=== PATIENT | female | born 1975 | race Hispanic/Latino ===

== ENCOUNTER 2018-02-26 18:54 | Emergency (ER) | payer SELFPAY ==
[2018-02-26 19:15] VITALS: TEMP 99.1
[2018-02-26] MEDS ORDERED: ASPIRIN (CHEWABLE) 81 MG TAB PO ONE (19:25)
--- NOTE | 2018-02-26 19:30 | ED.PDOC ---
History of Present Illness - General Chief Complaint: Chest Pain/OH Stated Complaint: pain across chest and to back Time Seen by Provider: 02/26/18 19:15 Source: patient Exam Limitations: no limitations - History of Present Illness Initial Comments: Patient presents with chest pain for 24 hours. It was constant yesterday, stopped at night, then began again today. It is mid-sternal with no radiation. Feels like "congestion". No associated symptoms. Denies previous episodes. Patient denies tobacco use, htn, DM, or first degree family members with cardiac disease. She has occasional bipedal edema associated with long stents of time on her feet at work. No previous AMI. No other complaints. Timing/Duration: 24 hours Severity/Quality: mild Location: substernal Chest Pain Radiation: no radiation Activities at Onset: none Prior Chest Pain/Cardiac Workup: no prior chest pain Improving Factors: nothing Worsening Factors: nothing Nitro Today/Relief: no nitro taken today Aspirin Treatment Today: no aspirin today Associated Symptoms: denies symptoms Allergies/Adverse Reactions: Allergies NO KNOWN ALLERGY Allergy (Verified 07/16/15 13:58) Home Medications: Ambulatory Orders Lisinopril & Hydrochlorothiazi [Lisinopril/Hctz 20-25 mg] 1 tab PO DAILY Review of Systems - Review of Systems Constitutional: States: no symptoms reported EENTM: States: no symptoms reported Respiratory: States: no symptoms reported Cardiology: States: see HPI Gastrointestinal/Abdominal: States: no symptoms reported Genitourinary: States: no symptoms reported Musculoskeletal: States: no symptoms reported Skin: States: no symptoms reported Neurological: States: no symptoms reported Endocrine: States: no symptoms reported Hematologic/Lymphatic: States: no symptoms reported Past Medical History (General) - Patient Medical History Hx Congestive Heart Failure: No Hx Hypertension: Yes Hx Diabetes: No Surgical History: tonsillectomy - Vaccination History Hx Tetanus, Diphtheria Vaccination: No Hx Influenza Vaccination: No Hx Pneumococcal Vaccination: No - Social History Hx Tobacco Use: No Hx Alcohol Use: No - Female History Hx Last Menstrual Period: 10/31/14 Patient : No - Triage Comment ED Triage Comment: pain across chest for past day Family Medical History - Family History Mother Family History: No Known Physical Exam - Physical Exam General Appearance: Alert Eyes, Ears, Nose, Throat Exam: PERRL/EOMI, normal ENT inspection Neck: non-tender, full range of motion, supple Respiratory: chest non-tender, lungs clear, normal breath sounds Cardiovascular/Chest: normal peripheral pulses, regular rate, rhythm, no edema Gastrointestinal/Abdominal: normal bowel sounds, non tender, soft Extremity: normal range of motion, non-tender, normal inspection Neurologic: director of clinical trials II-XII nml as tested, no motor/sensory deficits, alert Skin Exam: normal color Lymphatic: no adenopathy Progress - Progress Progress: 02/26/18 20:18 EKG shows NSR with no ST changes nor T wave inversions. No LBBB. Troponin 0.17. NSTEMI diagnosed. ASA 325 mg po was given upon arrival. Nitropaste to chest started. Plavix 300 mg po xone. Atorvastatin 80 mg po x one. Heparin 5000 IU IV x one then 1000 IU/hour. Patient transferred to Dr. Han at [facility] in [place]. Laboratory Tests 02/26/18 02/26/18 02/26/18 19:44 19:44 19:44 WBC 9.9 RBC 4.52 Hgb 13.3 Hct 39.1 MCV 86.4 MCH 29.4 MCHC 34.0 RDW 13.0 Plt Count 309 MPV 8.1 Absolute Neuts (auto) 6.60 Absolute Lymphs (auto) 2.30 Absolute Monos (auto) 0.70 Absolute Eos (auto) 0.20 Absolute Basos (auto) 0.10 Neutrophils % 67.2 Lymphocytes % 23.5 Monocytes % 6.6 Eosinophils % 2.0 Basophils % 0.7 PT 11.9 INR 1.030 PTT (SP) 30.7 Sodium 139 Potassium 3.7 Chloride 104 Carbon Dioxide 29 Anion Gap 9.7 L BUN 12 Creatinine 0.74 BUN/Creatinine Ratio 16.2 Random Glucose 109 H Serum Osmolality 277.9 Calcium 9.0 Total Bilirubin 0.7 AST 18 ALT 16 Alkaline Phosphatase 63 Creatine Kinase CK-MB (CK-2) CK-MB (CK-2) % Troponin I B-Natriuretic Peptide Serum Total Protein 7.2 Albumin 3.8 Globulin 3.4 Albumin/Globulin Ratio 1.1 02/26/18 19:44 WBC RBC Hgb Hct MCV MCH MCHC RDW Plt Count MPV Absolute Neuts (auto) Absolute Lymphs (auto) Absolute Monos (auto) Absolute Eos (auto) Absolute Basos (auto) Neutrophils % Lymphocytes % Monocytes % Eosinophils % Basophils % PT INR PTT (SP) Sodium Potassium Chloride Carbon Dioxide Anion Gap BUN Creatinine BUN/Creatinine Ratio Random Glucose Serum Osmolality Calcium Total Bilirubin AST ALT Alkaline Phosphatase Creatine Kinase 130 CK-MB (CK-2) 4.6 H* CK-MB (CK-2) % 3.54 Troponin I 0.17 H* B-Natriuretic Peptide 24.0 Serum Total Protein Albumin Globulin Albumin/Globulin Ratio Departure - Departure Clinical Impression: NSTEMI (non-ST elevated myocardial infarction) Disposition: Transfer to Hospital Condition: Serious Departure Forms: ED Discharge - Pt. Copy, Patient Portal Self Enrollment Instructions: DI for Chest Pain Diet: other - NPO Activity: other - as per hospitalist Referrals: Matthew Carter MD [Primary Care Provider] - 1-2 Weeks Home Medications: Ambulatory Orders Lisinopril & Hydrochlorothiazi [Lisinopril/Hctz 20-25 mg] 1 tab PO DAILY
--- NOTE | 2018-02-26 19:43 | RAD ---
PROCEDURE: XR CHEST 1 VIEW HISTORY: chest pain COMPARISON: 03/05/2014 TECHNIQUE: Single projection of the chest was done. FINDINGS: The lung escalante are well inflated . There are no discrete airspace infiltrates, pneumothoraces or pleural effusions. The pulmonary vascularity is normal. The cardiomediastinal silhouette is unremarkable for patient's age and sex. IMPRESSION: There is no acute pleural-parenchymal process seen in the imaged lung escalante. Location of Interpretation: Teleradiology Electronically signed by: Tru Diaz MD 02/26/2018 7:42 PM CDT Workstation: [id number]
[2018-02-26] MEDS ORDERED: HEPARIN SODIUM (PORCINE) 5,000 U/ML VIAL IV ONE (20:12)
[2018-02-26] MEDS ORDERED: HEPARIN PREMIX 25,000 UNITS in PREMIX BAG 1 BAG IVS SCH (20:15)
[2018-02-26] MEDS ORDERED: ATORVASTATIN 20 MG TAB PO ONE (20:16)
[2018-02-26] MEDS ORDERED: NITROGLYCERIN 2% 1 GM UD TOP ONE (20:17)
[2018-02-26] MEDS ORDERED: CLOPIDOGREL 75 MG TAB PO ONE (20:17)
[2018-02-26] MEDS ORDERED: HEPARIN PREMIX 500 ML ONE (20:18)
[2018-02-26 20:23] VITALS: BP 123/78; O2SAT 100
== END 2018-02-26 20:52 | disposition short-term general hospital (02) ==
LOC: ER 18:54
DX: I21.4 Non-ST elevation (NSTEMI) myocardial infarction (principal); I10 Essential (primary) hypertension
CPT/HCPCS: 36415; 71045; 80053; 82550; 82553; 83880; 84484; 85025; 85610; 85730; 93005; J1644

== ENCOUNTER → 2018-08-27 | Outpatient (CLI) | payer OTHER | LOC: LAB.O 16:08 | PROVIDERS: ATTEND General Practice | DX: R53.83 Other fatigue (principal) ==

== ENCOUNTER → 2019-10-28 | Outpatient (CLI) | payer OTHER ==
--- NOTE | 2019-10-28 16:11 | MAM ---
EXAM DESCRIPTION: 3D Diagnostic, Bilateral (accession [id number]), Breast,Bilateral (accession [id number]): Ultrasound CLINICAL HISTORY: 44 yearsFemale[age] BREAST PAIN AND LUMP "stinging" pain lateral to left scapula and radiates to the lateral left breast. Contract Post Office Clerk palpated a lump upper outer quadrant middle third left breast . No personal or family history of breast cancer. Menarche age 13. Childbirth age 19. Premenopausal. No HRT Lifetime risk of developing breast cancer (Tyrer-Cuzick model)(%): 7.7. COMPARISON: Baseline study at this facility. No prior reports. TECHNIQUE: Bilateral LM, CC, and MLO projection full-field images, digital tomosynthesis technique. Bilateral 2-D digital full-field images: LM, CC, and MLO projections. CAD not available. . Transcutaneous scanning of the bilateral breasts utilizing henson-scale and Doppler modes. Scanning performed by the brick siding applicator ; observation by Dr. Dowling. Technically difficult to orient the right nipple in profile, and to place the left breast in the MLO position with no visible pectoral muscle, due to body habitus. FINDINGS: The breast parenchymal density pattern is: Almost entirely fatty. No skin thickening or nipple retraction marker is visible on the skin at the 1:30 clock position of the middle third of the upper-outer quadrant, 12 cm from the nipple. No mammographic abnormality. Lack of visualization of the left breast pectoral muscle on the MLO image. Focal asymmetry in the retroareolar right breast. Ultrasound: Scanning of the retroareolar right breast. Mostly fatty tissues with minimal fibroglandular tissues. No dominant solid mass or distinct cyst. No parenchymal edema or large calcifications. No overlying skin changes. Scanning of the region around the skin marker in the middle third upper outer quadrant left breast. Mostly fatty tissues with minimal fibroglandular tissues. Negative findings as in the right breast. IMPRESSION: No suspicious or significant imaging findings. BI-RADS CATEGORY: 1 - NEGATIVE FOLLOW UP: Begin routine digital bilateral screening, one year interval from October 2019. Written communication explaining the findings and follow-up, will be mailed to the patient and referring health care provider. The FINDINGS and the FOLLOW-UP plan were reviewed in person with the patient after the examination. According to the [employer], yearly mammograms are recommended starting at age 40 and continuing as long as a woman is in good health. Any breast change noted on a breast self-exam should be reported promptly to the patient's healthcare provider. Breast MRI is recommended for women with an approximately 20-25% or greater lifetime risk of breast cancer, including women with a strong family history of breast or ovarian cancer and women who have been treated for Hodgkin's disease. A negative mammographic report should not delay tissue diagnosis in patients with significant clinical history or physical findings. Extremely dense breast tissue limits the sensitivity of digital mammography. Electronically signed by: Darrell Dowling MD 10/28/2019 4:09 PM [facility]
== END ==
LOC: MAMMO 09:00
PROVIDERS: ATTEND Family Medicine
DX: N63.20 Unspecified lump in the left breast, unspecified quadrant (principal); N64.4 Mastodynia
CPT/HCPCS: 76641; 77066; G0279